=== PATIENT | female | born 1940 | race Caucasian/White ===

== ENCOUNTER 2019-11-06 10:02 | Emergency (ER) | payer MEDICARE, BC ==
--- NOTE | 2019-11-06 10:16 | EDM.PDOC ---
ED HPI GENERAL MEDICAL PROBLEM - General Chief Complaint: Gastrointestinal Problem Stated Complaint: BLEEDING FROM RECTUM Time Seen by Provider: 11/06/19 10:11 Source of Information: Reports: Patient, RN, RN Notes Reviewed History Limitations: Reports: No Limitations - History of Present Illness INITIAL COMMENTS - FREE TEXT/NARRATIVE: Pt presents to ER from home by POV with c/o bloody diarrhea that began this morning about 0500HRS with several BMs until 0930HRS. Yesterday pt had severe generalized lower abdominal pain with nausea, vomiting, and dry heaves. Today the pain is present, but not severe. She is not nauseated at this time. Pt reports intermittent episodes of generalized abdominal pain with bloating and cramping since July 2019. She states she was seen once in clinic and had her Omeprazole increased, which seemed to help for a while. Denies any past history of rectal bleeding, UGI bleed, N/V, constipation, hemorrhoidal pain/ inflammation, fever, chills, dysuria, or any mucus in the stool. Pt denies any lightheadedness, dizziness, or syncope. Denies chest pain, shortness of breath, cough, recent travel, or any exposure to confirmed or suspected Covid-19 cases. Onset: Today Duration: Recurring, Resolved Prior to Arrival Location: Reports: Abdomen Quality: Reports: Ache, Pressure, Other (Bloating, cramping) Severity: Moderate Improves with: Reports: None Worsens with: Reports: None Associated Symptoms: Reports: No Other Symptoms Treatments CONTENT ANALYST: Reports: Other Medication(s) (Omeprazole) - Related Data Allergies Allergy/AdvReac Type Severity Reaction Status Date / Time aspirin Allergy Other Verified 11/06/19 10:16 cephalexin [From Keflex] Allergy Hives Verified 11/06/19 10:16 dust Allergy Sneezing Uncoded 11/06/19 10:16 Home Meds: Home Meds Omeprazole 20 mg PO BID 11/06/19 [History] hydroCHLOROthiazide [Hydrochlorothiazide] 12.5 mg PO DAILY 11/06/19 [History] hydroCHLOROthiazide [Hydrochlorothiazide] 25 mg PO DAILY 11/06/19 [History] Past Medical History Gastrointestinal History: Reports: Hemorrhoids Social & Family History - Family History Family Medical History: Noncontributory - Living Situation & Occupation Occupation: Retired ED ROS GENERAL - Review of Systems Review Of Systems: Comprehensive ROS is negative, except as noted in HPI. ED EXAM, GI/ABD - Physical Exam Exam: See Below Exam Limited By: No Limitations General Appearance: Alert, WD/WN, No Apparent Distress Eyes: Bilateral: Normal Appearance (No scleral icterus) Nose: Normal Inspection, No Blood Throat/Mouth: Normal Inspection, Normal Lips, Normal Gums, Normal Voice, No Airway Compromise Head: Atraumatic, Normocephalic Neck: Normal Inspection, Non-Tender Respiratory/Chest: No Respiratory Distress, Lungs Clear, Normal Breath Sounds, No Accessory Muscle Use, Chest Non-Tender Cardiovascular: Regular Rate, Rhythm, No Edema GI/Abdominal Exam: Normal Bowel Sounds, Soft, No Organomegaly, No Distention, No Abnormal Bruit, Tender (pain to palpation at RLQ and suprapubic regions). No : Guarding, Rigid, Rebound (Female) Exam: Deferred Rectal (Female) Exam: Heme - Stool Back Exam: Normal Inspection. No: CVA Tenderness (L), CVA Tenderness (R), Vertebral Tenderness Extremities: Normal Inspection, No Pedal Edema Neurological: Alert, Oriented, Normal Cognition, Normal Gait, No Motor/Sensory Deficits Psychiatric: Normal Mood Skin Exam: Warm, Dry, Intact, Normal Color, No Rash. No: Ecchymosis, Jaundice, Petechiae Course - Vital Signs Last Recorded V/S: Last Vital Signs Temp 97.7 F 11/06/19 10:10 Pulse 95 11/06/19 10:10 Resp 16 11/06/19 10:10 BP 153/82 H 11/06/19 10:10 Pulse Ox 97 11/06/19 10:10 - Orders/Labs/Meds Orders: Active Orders 24 hr Category Date Time Status Peripheral IV Care [RC] . DIRECTED Care 11/06/19 10:33 Active CULTURE STOOL [RM] Stat Lab 11/06/19 10:33 Ordered OCCULT BLOOD DIAGNOSTIC [OP] Stat Lab 11/06/19 10:33 Ordered Sodium Chloride 0.9% [Saline Flush] Med 11/06/19 10:33 Active 10 ml FLUSH ASDIRECTED PRN Peripheral IV Insertion Adult [OM.PC] Stat Oth 11/06/19 10:32 Ordered Medication Orders Sodium Chloride (Saline Flush) 10 ml FLUSH ASDIRECTED PRN PRN Reason: Keep Vein Open Last Admin: 11/06/19 10:15 Dose: 10 ml Labs: Laboratory Tests 11/06/19 11/06/19 11/06/19 Range/Units 10:20 10:20 10:20 WBC 10.2 H (5.0-10.0) 10^3/uL RBC 3.91 L (4.2-5.4) 10^6/uL Hgb 11.5 L (12.0-16.0) g/dL Hct 34.2 L (37.0-47.0) % MCV 87.5 (80-100) fL MCH 29.4 (27.0-34.0) pg MCHC 33.6 (33.0-35.0) g/dL Plt Count 516 H (150-450) 10^3/uL Neut % (Auto) 75.5 H (42.2-75.2) % Lymph % (Auto) 13.7 L (20.5-50.1) % Hyde % (Auto) 10.0 H (2-8) % Eos % (Auto) 0.5 L (1.0-3.0) % Baso % (Auto) 0.3 (0.0-1.0) % PT 10.2 (9.0-12.0) SEC INR 1.1 (0.9-1.2) APTT 24.8 (22.0-34.0) SEC Sodium 130 L (136-145) mmol/L Potassium 4.0 (3.5-5.1) mmol/L Chloride 93 L (98-107) mmol/L Carbon Dioxide 26 (21-32) mmol/L Anion Gap 15.0 H (7-13) mEq/L BUN 8 (7-18) mg/dL Creatinine 0.65 (0.55-1.02) mg/dL Est Cr Clr Drug Dosing 65.22 mL/min Estimated GFR (MDRD) > 60 BUN/Creatinine Ratio 12.3 (No establ ref range) Glucose 109 H (74-99) mg/dL Lactic Acid (0.4-2.0) mmol/L Calcium 8.2 L (8.5-10.1) mg/dL Total Bilirubin 0.3 (0.2-1.0) mg/dL AST 26 (15-37) U/L ALT 23 (14-59) U/L Alkaline Phosphatase 81 (46-116) U/L Lactate Dehydrogenase 273 H (81-234) U/L C-Reactive Protein 3.1 H (0.0-0.9) mg/dL Total Protein 6.7 (6.4-8.2) g/dL Albumin 3.5 (3.4-5.0) g/dL Globulin 3.2 Albumin/Globulin Ratio 1.1 Amylase 34 (25-115) U/L Lipase 123 (73-393) U/L 11/06/19 Range/Units 10:20 WBC (5.0-10.0) 10^3/uL RBC (4.2-5.4) 10^6/uL Hgb (12.0-16.0) g/dL Hct (37.0-47.0) % MCV (80-100) fL MCH (27.0-34.0) pg MCHC (33.0-35.0) g/dL Plt Count (150-450) 10^3/uL Neut % (Auto) (42.2-75.2) % Lymph % (Auto) (20.5-50.1) % Hyde % (Auto) (2-8) % Eos % (Auto) (1.0-3.0) % Baso % (Auto) (0.0-1.0) % PT (9.0-12.0) SEC INR (0.9-1.2) APTT (22.0-34.0) SEC Sodium (136-145) mmol/L Potassium (3.5-5.1) mmol/L Chloride (98-107) mmol/L Carbon Dioxide (21-32) mmol/L Anion Gap (7-13) mEq/L BUN (7-18) mg/dL Creatinine (0.55-1.02) mg/dL Est Cr Clr Drug Dosing mL/min Estimated GFR (MDRD) BUN/Creatinine Ratio (No establ ref range) Glucose (74-99) mg/dL Lactic Acid 1.5 (0.4-2.0) mmol/L Calcium (8.5-10.1) mg/dL Total Bilirubin (0.2-1.0) mg/dL AST (15-37) U/L ALT (14-59) U/L Alkaline Phosphatase (46-116) U/L Lactate Dehydrogenase (81-234) U/L C-Reactive Protein (0.0-0.9) mg/dL Total Protein (6.4-8.2) g/dL Albumin (3.4-5.0) g/dL Globulin Albumin/Globulin Ratio Amylase (25-115) U/L Lipase (73-393) U/L Meds: Medications Generic Name Dose Route Start Last Admin Trade Name Freq PRN Reason Stop Dose Admin Sodium Chloride 10 ml 11/06/19 10:33 11/06/19 10:15 Saline Flush FLUSH 10 ml ASDIRECTED PRN Administration Keep Vein Open Discontinued Medications Generic Name Dose Route Start Last Admin Trade Name Freq PRN Reason Stop Dose Admin Sodium Chloride 1,000 mls @ 999 mls/hr 11/06/19 10:56 11/06/19 11:35 Normal Saline IV 11/06/19 11:56 999 mls/hr .BOLUS ONE Administration Iopamidol 100 ml 11/06/19 10:56 11/06/19 11:12 Isovue-300 (61%) IVPUSH 11/06/19 10:57 75 ml ONETIME ONE Administration - Radiology Interpretation Free Text/Narrative:: CT Abd/Pelvis with IV Contrast: Suspicious right pelvic mass, ascites and nodularity peritoneal surface per Rad. report. - Re-Assessments/Exams Free Text/Narrative Re-Assessment/Exam: 11/06/19 12:[address] Robe Neely, who agrees to arrange f/u and referral for the pt for a timely outpatient Biomed Tech and/or Onc. evaluation. Departure - Departure Time of Disposition: 12:10 Disposition: Home, Self-Care 01 Condition: Fair, Undetermined Clinical Impression: Pelvic mass in female, Bloody diarrhea Ascites Qualifiers: Ascites type: malignant Qualified Code(s): R18.0 - Malignant ascites - Discharge Information *PRESCRIPTION DRUG MONITORING PROGRAM REVIEWED*: No *COPY OF PRESCRIPTION DRUG MONITORING REPORT IN PATIENT MAIKEL: Not Applicable Instructions: Pelvic Mass, Female, Ascites, Bloody Diarrhea Forms: ED Department Discharge Additional Instructions: Rx: Zofran 4mg Rx: Hydrocodone APAP 5mg/325mg Dr. Neely will have someone from [facility] call you today to arrange a follow up appointment and/or referral for further evaluation. Return to the ER if you develop uncontrolled pain, fever, shortness of breath, lightheadedness, or fainting. Sepsis Event Note - Focused Exam Vital Signs: Vital Signs Temp Pulse Resp BP Pulse Ox 11/06/19 10:10 97.7 F 95 16 153/82 H 97 Date Exam was Performed: 11/06/19 Time Exam was Performed: 12:07 - My Orders Last 24 Hours: My Active Orders 11/06/19 10:32 Peripheral IV Insertion Adult [OM.PC] Stat 11/06/19 10:33 Peripheral IV Care [RC] . DIRECTED CULTURE STOOL [RM] Stat OCCULT BLOOD DIAGNOSTIC [OP] Stat Sodium Chloride 0.9% [Saline Flush] 10 ml FLUSH ASDIRECTED PRN - Assessment/Plan Last 24 Hours: My Active Orders 11/06/19 10:32 Peripheral IV Insertion Adult [OM.PC] Stat 11/06/19 10:33 Peripheral IV Care [RC] . DIRECTED CULTURE STOOL [RM] Stat OCCULT BLOOD DIAGNOSTIC [OP] Stat Sodium Chloride 0.9% [Saline Flush] 10 ml FLUSH ASDIRECTED PRN
[2019-11-06] MEDS ORDERED: Sodium Chloride 0.9% 10 ML Syringe FLUSH PRN (10:33)
[2019-11-06 10:53] LABS: CHLORIDE,CL 93 mmol/L (98-107); SODIUM,NA 130 mmol/L (136-145)
[2019-11-06] MEDS ORDERED: Sodium Chloride 0.9% 1,000 ML IV ONE (10:56)
[2019-11-06] MEDS ORDERED: Iopamidol 612 MG/ML 100 ML Bottle IVPUSH ONE (10:56)
[2019-11-06 11:13] LABS: PTT,PARTIAL THROMBOPLSTIN TIME 24.8 SEC (22.0-34.0)
--- NOTE | 2019-11-06 11:48 | CT ---
EXAMINATION: Abdomen Pelvis w Cont SEX: Female AGE: 79 years CLINICAL HISTORY: 79-year-old hypertensive female "smoker" with lower abdominal pain and bloody diarrhea ("bright red") previous cholecystectomy. Scan technique: Volume acquisition of data from the abdomen and pelvis obtained without oral contrast but during intravenous ministration 75 cc nonionic Isovue contrast (3 cc/s via injector) while patient was lying supine on the Siemens multi slice scanner [place], [place]. All data archived in the PACS system for storage, reformatting, study. Interpretation: Abnormal. 1. Large multicystic pelvic mass (4.0 W x 5.0 L x 5.5 AP cm occupying the right adnexa. Cystadenoma? Cystadenocarcinoma? 2. ASCITES. 3. Nodularity scattered along the peritoneal surface and suggest possible metastatic disease. No pelvic, mesenteric or retroperitoneal lymphadenopathy. Paracentesis suggested. 4. Numerous large diverticula sigmoid colon IE diverticulosis. 5. Cholecystectomy (surgical clips RUQ). Liver, stomach, spleen, pancreas and adrenal glands unremarkable. 6. Normal reniform size, axis and configuration bilaterally. No renal cortical mass lesion, nephrolithiasis or signs of obstructive uropathy. 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 Urinary bladder unremarkable. 7. Densely calcified "cast" normal caliber aortoiliac vessels. No aneurysm or dissection. Lumbar spine unremarkable for age. 8. No abdominal mass lesion, signs of mechanical bowel obstruction or free intraperitoneal air. Lung bases clear. CONCLUSION: Sigmoid diverticulosis. Suspicious right pelvic mass, ascites and nodularity peritoneal surface.
== END 2019-11-06 12:35 | disposition home or self-care (01) ==
LOC: DL.ED 10:02
DX: R19.00 Intra-abdominal and pelvic swelling, mass and lump, unspecified site (principal); R19.7 Diarrhea, unspecified; Z88.8 Allergy status to other drugs, medicaments and biological substances; Z91.048 Other nonmedicinal substance allergy status; Z79.899 Other long term (current) drug therapy
CPT/HCPCS: 36415; 74177; 80053; 82150; 83605; 83615; 83690; 85025; 85610; 85730; 86140; 87046; 96360; 99284; 99284-25; J7030; Q9967

== ENCOUNTER 2021-12-12 12:45 | Emergency (ER) | payer MEDICARE, BC ==
[2021-12-12] MEDS ORDERED: HYDROmorphone 0.5 MG/0.5 ML Syringe IVPUSH ONE (13:27)
[2021-12-12 13:31] LABS: CHLORIDE,CL 97 mmol/L (98-107); SODIUM,NA 131 mmol/L (136-145)
[2021-12-12] MEDS ORDERED: Ondansetron 4 MG/2 ML SDV IVPUSH ONE (13:49)
== END 2021-12-12 14:55 ==
LOC: DL.ED 12:45
DX: S72.001A Fracture of unspecified part of neck of right femur, initial encounter for closed fracture (principal); I10 Essential (primary) hypertension; Z88.1 Allergy status to other antibiotic agents; Z91.048 Other nonmedicinal substance allergy status; Z88.8 Allergy status to other drugs, medicaments and biological substances; Z79.899 Other long term (current) drug therapy; Z20.822 Contact with and (suspected) exposure to COVID-19; W18.30XA Fall on same level, unspecified, initial encounter
CPT/HCPCS: 36415; 51702; 72170; 72192; 80053; 85025; 85610; 86140; 96374; 96375; 99285-25; J1170; J2405; U0002

== ENCOUNTER 2022-11-28 15:31 | Emergency (ER) | payer MEDICARE, BC ==
[2022-11-28] MEDS ORDERED: Sodium Chloride 0.9% 1,000 ML IV ONE (15:44)
[2022-11-28] MEDS: Sodium Chloride 0.9% 10 ML Syringe FLUSH PRN ×2 (16:07→18:45)
[2022-11-28 16:10] LABS: HEMATOCRIT 22.4 % (37.0-47.0); HEMOGLOBIN 7.4 g/dL (12.0-16.0); MEAN CORPUSCULAR HEMOGLOBIN 30.1 pg (27.0-34.0); MEAN CORPUSCULAR VOLUME 91.1 fL (80-100); PLATELET COUNT,PLT 542 10^3/uL (150-450); RED BLOOD CELL COUNT 2.46 10^6/uL (4.2-5.4); WHITE BLOOD CELL COUNT,WBC 1.9 10^3/uL (5.0-10.0)
[2022-11-28 16:22] LABS: EOSINOPHILS PERCENT AUTO 0.5 % (1.0-3.0); LYMPHOCYTES PERCENT AUTO 28.6 % (20.5-50.1); NEUTROPHILS PERCENT AUTO 61.9 % (42.2-75.2)
[2022-11-28 16:31] LABS: PROTHROMBIN TIME 10.4 SEC (9.0-12.0); PTT,PARTIAL THROMBOPLSTIN TIME 26.1 SEC (22.0-34.0)
[2022-11-28 16:34] LABS: LACTIC ACID 0.8 mmol/L (0.4-2.0)
[2022-11-28 16:40] LABS: ALBUMIN 2.2 g/dL (3.4-5.0); ANION GAP 13.5 mEq/L (7-13); BILIRUBIN TOTAL 0.5 mg/dL (0.2-1.0); C-REACTIVE PROTEIN 9.3 mg/dL (0.0-0.9); CREATININE 0.6 mg/dL (0.55-1.02); EST CRCL DRUG DOSING (CG) 64.58 mL/min; POTASSIUM,K 3.5 mmol/L (3.5-5.1); PROTEIN TOTAL,TP 5.1 g/dL (6.4-8.2); TSH ULTRASENSITIVE 2.8 uIU/mL (0.36-3.74)
[2022-11-28 16:48] LABS: A/G RATIO 0.76; CALCIUM 6.6 mg/dL (8.5-10.1)
[2022-11-28 17:08] LABS: BAND PERCENT MAN 1 %; LYMPHOCYTES PERCENT MAN 31 % (20-50); MONOCYTES PERCENT MAN 8 % (2-8); SEG NEUTROPHILS PERCENT MAN 60 % (42-75)
[2022-11-28 17:09] LABS: HYPOCHROMASIA 1+ SLIGHT
[2022-11-28] MEDS ORDERED: Acetaminophen 500 MG Tab PO ONE (18:40)
[2022-11-28] MEDS ORDERED: Albumin 5% 250 ML IV SCH (18:45)
== END 2022-11-28 19:09 ==
LOC: DL.ED 15:31
DX: D70.1 Agranulocytosis secondary to cancer chemotherapy (principal); C56.9 Malignant neoplasm of unspecified ovary; R18.0 Malignant ascites; T45.1X5A Adverse effect of antineoplastic and immunosuppressive drugs, initial encounter; I95.9 Hypotension, unspecified; E86.0 Dehydration; E87.1 Hypo-osmolality and hyponatremia; I10 Essential (primary) hypertension; Z79.899 Other long term (current) drug therapy; Z88.8 Allergy status to other drugs, medicaments and biological substances; Z88.1 Allergy status to other antibiotic agents; Z91.048 Other nonmedicinal substance allergy status
CPT/HCPCS: 36415; 71045; 80053; 82150; 83605; 83690; 83880; 84443; 84484; 85025; 85610; 85730; 86140; 93005; 96361; 96365; 99285; A9270; J7030; P9045; 93010; 99284; J3490

== ENCOUNTER 2022-12-10 09:37 | Observation (INO) | payer MEDICARE, BC ==
[2022-12-10] MEDS ORDERED: Sodium Chloride 0.9% 10 ML Syringe FLUSH PRN (09:46)
[2022-12-10] MEDS ORDERED: Promethazine 25 MG/ML SDV IM ONE (09:59)
[2022-12-10 10:05] LABS: HEMATOCRIT 24.8 % (37.0-47.0); HEMOGLOBIN 8.1 g/dL (12.0-16.0); MEAN CORPUSCULAR HEMOGLOBIN 29.8 pg (27.0-34.0); MEAN CORPUSCULAR HGB CONC 32.7 g/dL (33.0-35.0); MEAN CORPUSCULAR VOLUME 91.2 fL (80-100); PLATELET COUNT,PLT 573 10^3/uL (150-450); RED BLOOD CELL COUNT 2.72 10^6/uL (4.2-5.4); WHITE BLOOD CELL COUNT,WBC 7.8 10^3/uL (5.0-10.0)
[2022-12-10 10:08] LABS: EOSINOPHILS PERCENT AUTO 0.1 % (1.0-3.0); MONOCYTES PERCENT AUTO 18.8 % (2-8)
[2022-12-10 10:09] LABS: BASOPHILS PERCENT AUTO 0.1 % (0.0-1.0)
[2022-12-10 10:24] LABS: INR 1.3 (0.9-1.2); PROTHROMBIN TIME 13.3 SEC (9.0-12.0); PTT,PARTIAL THROMBOPLSTIN TIME 28.3 SEC (22.0-34.0)
[2022-12-10 10:29] LABS: A/G RATIO 0.82; ALBUMIN 2.3 g/dL (3.4-5.0); ANION GAP 18.9 mEq/L (7-13); BILIRUBIN TOTAL 0.3 mg/dL (0.2-1.0); BUN/CREATININE RATIO 16.5 (No establ ref range); CREATININE 1.03 mg/dL (0.55-1.02); EST CRCL DRUG DOSING (CG) 37.62 mL/min; MAGNESIUM 0.3 mg/dL (1.8-2.4); POTASSIUM,K 3.9 mmol/L (3.5-5.1); PROTEIN TOTAL,TP 5.1 g/dL (6.4-8.2); URIC ACID 3.8 mg/dL (2.6-6.0)
[2022-12-10 10:32] LABS: CALCIUM 5.3 mg/dL (8.5-10.1)
[2022-12-10] MEDS ORDERED: Calcium Chloride 10% 1 GM/10 ML Syringe IVPUSH ONE (10:32)
[2022-12-10] MEDS ORDERED: Magnesium Sulfate/Water 2 GM in Premix Bag 1 BAG IV ONE ×4 (10:34)
[2022-12-10 10:37] LABS: BAND PERCENT MAN 4 %; LYMPHOCYTES PERCENT MAN 13 % (20-50); MONOCYTES PERCENT MAN 10 % (2-8); SEG NEUTROPHILS PERCENT MAN 73 % (42-75)
[2022-12-10] MEDS: Magnesium Sulfate/Water 2 GM in Premix Bag 1 BAG IV ONE ×2 (10:49→11:57)
[2022-12-10] MEDS ORDERED: Acetaminophen 500 MG Tab PO PRN (12:50)
[2022-12-10] MEDS ORDERED: Acetaminophen 325 MG Tab PO PRN (12:57)
[2022-12-10] MEDS ORDERED: Polyethylene Glycol 3350 Powder 17 GM Packet PO PRN (12:57)
[2022-12-10] MEDS ORDERED: Acetaminophen/HYDROcodone 325-5 MG Tab PO PRN (12:57)
[2022-12-10] MEDS ORDERED: Ondansetron 4 MG/2 ML SDV IVPUSH PRN (12:57)
[2022-12-10 14:21] LABS: CALCIUM 6.5 mg/dL (8.5-10.1); CREATININE 0.81 mg/dL (0.55-1.02); EST CRCL DRUG DOSING (CG) 47.83 mL/min
[2022-12-10 14:30] LABS: MAGNESIUM 1.9 mg/dL (1.8-2.4)
[2022-12-10] MEDS: Calcium Carbonate 500 MG Tab.Chew PO SCH ×2 (15:42→20:24)
[2022-12-10] MEDS: Cholecalciferol (Vitamin D3) 25 MCG Tab PO SCH (15:43)
[2022-12-10] MEDS ORDERED: Aspirin 81 MG Tab.Chew PO ONE (15:45)
[2022-12-10] MEDS: Metoprolol Tartrate 25 MG Tab PO SCH (15:46)
[2022-12-10] MEDS: Magnesium Oxide 400 MG Tab PO SCH (17:21)
[2022-12-10] MEDS ORDERED: Iopamidol 755 Mg/ML 100 ML Bottle IVPUSH ONE (19:22)
[2022-12-10] MEDS: Iopamidol 612 MG/ML 100 ML Bottle IVPUSH ONE (19:24)
[2022-12-10] MEDS ORDERED: Melatonin 3 MG Tab PO SCH (21:00)
[2022-12-11] MEDS: Iopamidol 612 MG/ML 100 ML Bottle IVPUSH ONE (00:50)
[2022-12-11] MEDS ORDERED: Omeprazole 20 MG Cap.CR PO SCH (06:00)
[2022-12-11 06:05] LABS: ANION GAP 14.9 mEq/L (7-13); CALCIUM 6.2 mg/dL (8.5-10.1); CREATININE 0.72 mg/dL (0.55-1.02); EST CRCL DRUG DOSING (CG) 53.81 mL/min; MAGNESIUM 1.5 mg/dL (1.8-2.4); POTASSIUM,K 3.9 mmol/L (3.5-5.1)
[2022-12-11] MEDS: Losartan 50 MG Tab PO SCH ×2 (07:53→08:45)
[2022-12-11] MEDS: Magnesium Oxide 400 MG Tab PO SCH (07:54)
[2022-12-11] MEDS: Cholecalciferol (Vitamin D3) 25 MCG Tab PO SCH ×2 (07:54→08:47)
[2022-12-11] MEDS: Potassium Chloride 10 MEQ Tab.ER PO SCH ×2 (07:54→08:46)
[2022-12-11] MEDS: Calcium Carbonate 500 MG Tab.Chew PO SCH ×2 (07:54→08:47)
[2022-12-11] MEDS: methylPREDNISolone 4 MG Tab 21 Tab/Dosepak PO SCH ×2 (07:55→08:46)
[2022-12-11] MEDS: Famotidine 20 MG Tab PO SCH ×2 (07:55→08:46)
[2022-12-11] MEDS: Metoprolol Tartrate 25 MG Tab PO SCH (07:55)
[2022-12-11] MEDS: Loratadine 10 MG Tab PO SCH ×2 (07:56→08:45)
[2022-12-11] MEDS ORDERED: Aspirin 81 MG Tab.Chew PO SCH (08:00)
[2022-12-11] MEDS ORDERED: Metoprolol Tartrate 25 MG Tab PO ONE (09:00)
[2022-12-11] MEDS ORDERED: Metoprolol Tartrate 25 MG Tab PO SCH ×2 (09:00→21:00)
[2022-12-11] MEDS ORDERED: Losartan 50 MG Tab PO SCH (09:00)
[2022-12-11] MEDS ORDERED: Sodium Chloride 1 GM Tab PO SCH (09:00)
[2022-12-11] MEDS ORDERED: Magnesium Sulfate/Water 2 GM in Premix Bag 1 BAG IV ONE (09:00)
== END 2022-12-11 13:45 | disposition home or self-care (01) ==
LOC: DL.ED 09:37 → DL.MS 11:00 → UNDOADMOB 11:02 → DL.MS 11:02 → DL.ED 11:32 → UNDOADMOB 11:49 → DL.MS 11:49
PROVIDERS: ADMIT Internal Medicine; ATTEND Internal Medicine
DX: R06.00 Dyspnea, unspecified (principal); R07.89 Other chest pain; R00.0 Tachycardia, unspecified; K52.9 Noninfective gastroenteritis and colitis, unspecified; C78.6 Secondary malignant neoplasm of retroperitoneum and peritoneum; G62.9 Polyneuropathy, unspecified; E83.51 Hypocalcemia; E83.42 Hypomagnesemia; K21.9 Gastro-esophageal reflux disease without esophagitis; D64.9 Anemia, unspecified; I10 Essential (primary) hypertension; E87.1 Hypo-osmolality and hyponatremia; M19.90 Unspecified osteoarthritis, unspecified site; Z96.641 Presence of right artificial hip joint; Z90.49 Acquired absence of other specified parts of digestive tract; Z90.09 Acquired absence of other part of head and neck; Z88.1 Allergy status to other antibiotic agents; Z85.43 Personal history of malignant neoplasm of ovary; Z79.82 Long term (current) use of aspirin; Z79.899 Other long term (current) drug therapy; Z88.8 Allergy status to other drugs, medicaments and biological substances
CPT/HCPCS: 36415; 71045; 71275; 80048; 80053; 83735; 83880; 84484; 84550; 85025; 85379; 85610; 85730; 93005; 93010; 93970; 96365; 96366; 96372; 96375; 96376; 99223; 99239; 99285; A9270; G0378; J2550; J3475; J7509; Q9967; 96374; J3490

== ENCOUNTER 2022-12-23 13:27 | Emergency (ER) | payer MEDICARE, BC ==
[2022-12-23 14:35] LABS: HEMATOCRIT 27.5 % (37.0-47.0); HEMOGLOBIN 8.7 g/dL (12.0-16.0); MEAN CORPUSCULAR HEMOGLOBIN 30.5 pg (27.0-34.0); MEAN CORPUSCULAR HGB CONC 31.6 g/dL (33.0-35.0); MEAN CORPUSCULAR VOLUME 96.5 fL (80-100); PLATELET COUNT,PLT 349 10^3/uL (150-450); RED BLOOD CELL COUNT 2.85 10^6/uL (4.2-5.4); WHITE BLOOD CELL COUNT,WBC 9.7 10^3/uL (5.0-10.0)
[2022-12-23 14:49] LABS: INR 1.2 (0.9-1.2); PROTHROMBIN TIME 12.4 SEC (9.0-12.0); PTT,PARTIAL THROMBOPLSTIN TIME 24.1 SEC (22.0-34.0)
[2022-12-23 14:58] LABS: MAGNESIUM 1.1 mg/dL (1.8-2.4); PHOSPHORUS 3.8 mg/dL (2.6-4.7)
[2022-12-23 15:00] LABS: MONOCYTES PERCENT AUTO 7.9 % (2-8); NEUTROPHILS PERCENT AUTO 80.9 % (42.2-75.2)
[2022-12-23 15:01] LABS: ALBUMIN 2.6 g/dL (3.4-5.0); ANION GAP 15.9 mEq/L (7-13); BASOPHILS PERCENT AUTO 0.2 % (0.0-1.0); BILIRUBIN TOTAL 0.5 mg/dL (0.2-1.0); BUN/CREATININE RATIO 23.9 (No establ ref range); CALCIUM 7.6 mg/dL (8.5-10.1); CREATININE 0.88 mg/dL (0.55-1.02); EST CRCL DRUG DOSING (CG) 44.03 mL/min; POTASSIUM,K 3.9 mmol/L (3.5-5.1); PROTEIN TOTAL,TP 5.3 g/dL (6.4-8.2)
[2022-12-23 15:07] LABS: A/G RATIO 0.96
[2022-12-23 15:31] LABS: BAND PERCENT MAN 3 %; LYMPHOCYTES PERCENT MAN 10 % (20-50); MONOCYTES PERCENT MAN 4 % (2-8); SEG NEUTROPHILS PERCENT MAN 82 % (42-75)
[2022-12-23] MEDS ORDERED: Furosemide 40 MG/4 ML VIAL IVPUSH ONE (17:27)
[2022-12-23] MEDS ORDERED: Magnesium Sulfate/Water 2 GM in Premix Bag 1 BAG IV ONE (17:28)
== END 2022-12-23 18:24 ==
LOC: DL.ED 13:27
DX: E83.42 Hypomagnesemia (principal); J90 Pleural effusion, not elsewhere classified; J98.11 Atelectasis; R18.0 Malignant ascites; C56.9 Malignant neoplasm of unspecified ovary; I11.0 Hypertensive heart disease with heart failure; I50.9 Heart failure, unspecified; K21.9 Gastro-esophageal reflux disease without esophagitis; Z79.82 Long term (current) use of aspirin; Z79.899 Other long term (current) drug therapy; Z91.048 Other nonmedicinal substance allergy status; Z88.6 Allergy status to analgesic agent; Z88.1 Allergy status to other antibiotic agents
CPT/HCPCS: 36415; 71045; 74019; 80053; 83735; 83880; 84100; 85025; 85610; 85730; 93005; 93010; 96365; 96375; 99285; J1940; J3475

== ENCOUNTER 2023-03-19 11:54 | Emergency (ER) | payer MEDICARE, BC ==
[2023-03-19] MEDS ORDERED: Sodium Chloride 0.9% 10 ML Syringe FLUSH PRN (12:25)
[2023-03-19] MEDS ORDERED: Ondansetron 4 MG/2 ML SDV IVPUSH ONE ×2 (12:26→14:07)
[2023-03-19] MEDS ORDERED: HYDROmorphone 0.5 MG/0.5 ML Syringe IVPUSH ONE (12:26)
[2023-03-19] MEDS ORDERED: Sodium Chloride 0.9% 1,000 ML IV ONE ×2 (12:26→12:44)
[2023-03-19 12:46] LABS: BASOPHILS PERCENT AUTO 0.4 % (0.0-1.0); EOSINOPHILS PERCENT AUTO 0.6 % (1.0-3.0); HEMATOCRIT 29.5 % (37.0-47.0); HEMOGLOBIN 9.7 g/dL (12.0-16.0); LYMPHOCYTES PERCENT AUTO 10.9 % (20.5-50.1); MEAN CORPUSCULAR HEMOGLOBIN 32.6 pg (27.0-34.0); MEAN CORPUSCULAR HGB CONC 32.9 g/dL (33.0-35.0); MONOCYTES PERCENT AUTO 1.1 % (2-8); PLATELET COUNT,PLT 580 10^3/uL (150-450); RED BLOOD CELL COUNT 2.98 10^6/uL (4.2-5.4); WHITE BLOOD CELL COUNT,WBC 8.4 10^3/uL (5.0-10.0)
[2023-03-19 12:52] LABS: APPEARANCE,URINE CLEAR (CLEAR); BILIRUBIN,URINE NEGATIVE (NEGATIVE); COLOR,URINE YELLOW (YELLOW); GLUCOSE,URINE NEGATIVE (NEGATIVE); KETONES,URINE TRACE (NEGATIVE); LEUKOCYTE ESTERASE,URINE NEGATIVE (NEGATIVE); NITRITE,URINE NEGATIVE (NEGATIVE); OCCULT BLOOD,URINE NEGATIVE (NEGATIVE); PROTEIN,URINE TRACE (NEGATIVE); UROBILINOGEN,URINE 0.2 mg/dL (0.2-1.0)
[2023-03-19 12:57] LABS: AMPHETAMINES,URINE NEGATIVE (NEGATIVE); BARBITURATES,URINE NEGATIVE (NEGATIVE); BENZODIAZEPINE,URINE NEGATIVE (NEGATIVE); MDMA (ECSTASY), URINE NEGATIVE (NEGATIVE); METHADONE,URINE NEGATIVE (NEGATIVE); METHAMPHETAMINES,URINE NEGATIVE (NEGATIVE); OPIATES,URINE NEGATIVE (NEGATIVE); OXYCODONE,URINE NEGATIVE (NEGATIVE); PHENCYCLIDINE,URINE NEGATIVE (NEGATIVE); TCA,URINE NEGATIVE (NEGATIVE)
[2023-03-19 13:03] LABS: BACTERIA,URINE RARE /HPF (0-FEW/HPF); EPITHELIAL CELLS,URINE RARE /HPF (NOT SEEN); RBC,URINE 0-5 /HPF (0-5); WBC,URINE 0-5 /HPF (0-5/HPF)
[2023-03-19 13:06] LABS: ALBUMIN 3.1 g/dL (3.4-5.0); ANION GAP 11.5 mEq/L (7-13); BILIRUBIN TOTAL 0.3 mg/dL (0.2-1.0); BUN/CREATININE RATIO 27.7 (No establ ref range); C-REACTIVE PROTEIN 8.1 mg/dL (0.0-0.9); CALCIUM 8.9 mg/dL (8.5-10.1); CREATININE 0.94 mg/dL (0.55-1.02); EST CRCL DRUG DOSING (CG) 38.32 mL/min; MAGNESIUM 1.7 mg/dL (1.8-2.4); POTASSIUM,K 4.5 mmol/L (3.5-5.1); PROTEIN TOTAL,TP 6.6 g/dL (6.4-8.2)
[2023-03-19 13:09] LABS: LACTIC ACID 0.8 mmol/L (0.4-2.0)
[2023-03-19 13:14] LABS: A/G RATIO 0.89
== END 2023-03-19 14:34 | disposition home or self-care (01) ==
LOC: DL.ED 11:54
DX: K52.9 Noninfective gastroenteritis and colitis, unspecified (principal); Z88.6 Allergy status to analgesic agent; Z88.1 Allergy status to other antibiotic agents; Z91.048 Other nonmedicinal substance allergy status; Z79.899 Other long term (current) drug therapy; Z79.82 Long term (current) use of aspirin
CPT/HCPCS: 36415; 74018; 80053; 80162; 80305; 81001; 82150; 83605; 83690; 83735; 85025; 86140; 96374; 96375; 96376; 99284; J1170; J2405; J7030; J3490

== ENCOUNTER 2023-03-20 13:20 | Emergency (ER) | payer MEDICARE, BC ==
[2023-03-20] MEDS ORDERED: Sodium Chloride 0.9% 10 ML Syringe FLUSH PRN (13:30)
[2023-03-20] MEDS ORDERED: Metoclopramide 10 MG/2 ML SDV IVPUSH ONE (13:31)
[2023-03-20 13:49] LABS: BASOPHILS PERCENT AUTO 0.3 % (0.0-1.0); HEMATOCRIT 31.5 % (37.0-47.0); HEMOGLOBIN 10.5 g/dL (12.0-16.0); LYMPHOCYTES PERCENT AUTO 13.4 % (20.5-50.1); MEAN CORPUSCULAR HEMOGLOBIN 32.3 pg (27.0-34.0); MEAN CORPUSCULAR HGB CONC 33.3 g/dL (33.0-35.0); MEAN CORPUSCULAR VOLUME 96.9 fL (80-100); NEUTROPHILS PERCENT AUTO 84.3 % (42.2-75.2); PLATELET COUNT,PLT 603 10^3/uL (150-450); RED BLOOD CELL COUNT 3.25 10^6/uL (4.2-5.4)
[2023-03-20 14:13] LABS: LACTIC ACID 1.5 mmol/L (0.4-2.0)
[2023-03-20 14:16] LABS: ALBUMIN 3.3 g/dL (3.4-5.0); ANION GAP 14.4 mEq/L (7-13); BILIRUBIN TOTAL 0.5 mg/dL (0.2-1.0); BUN/CREATININE RATIO 23.4 (No establ ref range); CALCIUM 9.3 mg/dL (8.5-10.1); CREATININE 1.41 mg/dL (0.55-1.02); EST CRCL DRUG DOSING (CG) 25.54 mL/min; MAGNESIUM 2.1 mg/dL (1.8-2.4); POTASSIUM,K 4.4 mmol/L (3.5-5.1); PROTEIN TOTAL,TP 7.2 g/dL (6.4-8.2)
[2023-03-20 14:18] LABS: A/G RATIO 0.85; C-REACTIVE PROTEIN 15.5 mg/dL (0.0-0.9)
== END 2023-03-20 15:43 ==
LOC: DL.ED 13:20
DX: K56.609 Unspecified intestinal obstruction, unspecified as to partial versus complete obstruction (principal); Z88.2 Allergy status to sulfonamides; Z88.6 Allergy status to analgesic agent; Z91.09 Other allergy status, other than to drugs and biological substances; Z79.899 Other long term (current) drug therapy; Z79.82 Long term (current) use of aspirin
CPT/HCPCS: 36415; 43752; 71045; 74176; 80053; 82150; 83605; 83690; 83735; 85025; 86140; 96374; 99285; J2765; J3490

== ENCOUNTER 2023-05-24 12:05 | Emergency (ER) | payer MEDICARE, BC ==
[2023-05-24] MEDS ORDERED: Sodium Chloride 0.9% 10 ML Syringe FLUSH PRN (12:21)
[2023-05-24] MEDS ORDERED: Sodium Chloride 0.9% 1,000 ML IV ONE ×2 (12:25→13:58)
[2023-05-24 12:41] LABS: BASOPHILS PERCENT AUTO 0.9 % (0.0-1.0); EOSINOPHILS PERCENT AUTO 0.3 % (1.0-3.0); HEMATOCRIT 23.9 % (37.0-47.0); HEMOGLOBIN 7.8 g/dL (12.0-16.0); LYMPHOCYTES PERCENT AUTO 18.7 % (20.5-50.1); MEAN CORPUSCULAR HGB CONC 32.6 g/dL (33.0-35.0); MEAN CORPUSCULAR VOLUME 94.8 fL (80-100); MONOCYTES PERCENT AUTO 3.7 % (2-8); NEUTROPHILS PERCENT AUTO 76.4 % (42.2-75.2); PLATELET COUNT,PLT 563 10^3/uL (150-450); RED BLOOD CELL COUNT 2.52 10^6/uL (4.2-5.4); WHITE BLOOD CELL COUNT,WBC 6.4 10^3/uL (5.0-10.0)
[2023-05-24 13:01] LABS: ALBUMIN 2.5 g/dL (3.4-5.0); ANION GAP 13.1 mEq/L (7-13); BILIRUBIN TOTAL 0.3 mg/dL (0.2-1.0); BUN/CREATININE RATIO 27.4 (No establ ref range); CALCIUM 8.1 mg/dL (8.5-10.1); CREATININE 1.06 mg/dL (0.55-1.02); EST CRCL DRUG DOSING (CG) 31.68 mL/min; MAGNESIUM 1.4 mg/dL (1.8-2.4); POTASSIUM,K 4.1 mmol/L (3.5-5.1); PROTEIN TOTAL,TP 5.9 g/dL (6.4-8.2)
[2023-05-24 13:25] LABS: INFLUENZA A NAA NEGATIVE (NEGATIVE); INFLUENZA B NAA NEGATIVE (NEGATIVE)
[2023-05-24 13:27] LABS: A/G RATIO 0.74
[2023-05-24 13:27] LABS: CORONAVIRUS COVID-19 NAA POSITIVE (NEGATIVE)
[2023-05-24] MEDS ORDERED: Magnesium Sulfate/Water 2 GM in Premix Bag 1 BAG IV ONE (13:43)
== END 2023-05-24 16:34 | disposition home or self-care (01) ==
LOC: DL.ED 12:05
DX: E83.42 Hypomagnesemia (principal); U07.1 COVID-19; E87.1 Hypo-osmolality and hyponatremia; Z79.899 Other long term (current) drug therapy; Z88.8 Allergy status to other drugs, medicaments and biological substances; Z88.1 Allergy status to other antibiotic agents; Z91.048 Other nonmedicinal substance allergy status; Z79.82 Long term (current) use of aspirin
CPT/HCPCS: 0240U; 36415; 80053; 83735; 85025; 93005; 93010; 96361; 96365; 96366; 99284; 99285-25; J3475; J3490; J7030